=== PATIENT | female | born 1995 | race African-American/Black ===

== ENCOUNTER 2019-01-10 07:20 | Observation (INO) | payer MEDICAID ==
[~2019-01-10] VITALS: Ht 157.5 cm; Wt 68.9 kg
[2019-01-10] MEDS ORDERED: FERR325T6 MT (08:17)
[2019-01-10] MEDS ORDERED: PREN1TAB78 MT (08:17)
[2019-01-10] MEDS ORDERED: FISH MT (08:17)
== END 2019-01-10 08:30 | disposition home or self-care (01) ==
LOC: 8 EST LDRP 07:20
PROVIDERS: ADMIT Obstetrics & Gynecology; ATTEND Obstetrics & Gynecology
DX: O62.9 Abnormality of forces of labor, unspecified (principal); O46.93 Antepartum hemorrhage, unspecified, third trimester; Z3A.38 38 weeks gestation of pregnancy
CPT/HCPCS: 99281; G0378

== ENCOUNTER 2019-01-11 17:04 | Inpatient (IN) | payer MEDICAID ==
[~2019-01-11] VITALS: Ht 157.5 cm; Wt 68.0 kg
[~2019-01-11 17:04] MED LIST: FERR325T6 MT; FISH MT; PREN1TAB78 MT
[2019-01-11] MEDS ORDERED: CARBOPROST TROMETHAMINE 250 MCG/ML AMPUL IM PRN (19:45)
[2019-01-11] MEDS ORDERED: METHYLERGONOVINE MALEATE 0.2 MG/ML IM PRN (19:45)
[2019-01-11] MEDS ORDERED: NALOXONE HCL 0.4 MG/ML 1ML VIAL IM PRN (19:45)
[2019-01-11] MEDS ORDERED: BUTORPHANOL TARTRATE 2 MG/ML VIAL IV PRN (19:45)
[2019-01-11] MEDS ORDERED: AMPICILLIN 2,000 MG in SODIUM CHLORIDE 0.9% 100 ML IV SCH (20:00)
[2019-01-11] MEDS ORDERED: MISOPROSTOL 100MCG TABLET VG SCH (20:00)
[2019-01-11] MEDS ORDERED: LIDOCAINE HCL 1% 20ML VIAL (Pyxis) INJ INFIL SCH (20:10)
[2019-01-11] MEDS: LACTATED RINGERS 1,000 ML IV SCH ×3 (20:14→23:31)
[2019-01-11] MEDS ORDERED: DEXT 5%/LR + PITOCIN 20UNITS/L 1,000 ML IV SCH (20:15)
[2019-01-11 20:27] LABS: CLARITY URINE CLEAR (CLEAR); COLOR URINE YELLOW (YELLOW); KETONES URINE NEGATIVE (NEGATIVE); LEUKOCYTE ESTERASE URINE 1+ (NEGATIVE); NITRITE URINE NEGATIVE (NEGATIVE); OCCULT BLOOD URINE NEGATIVE (NEGATIVE); PH URINE 6.5 (4.5-8.0); PROTEIN URINE NEGATIVE (NEGATIVE); SPECIFIC GRAVITY URINE 1.006 (1.005-1.030); UROBILINOGEN URINE 0.2 E.U./dL (0.2-1.0)
[2019-01-11 20:27] LABS: BASOPHILS % 0.5 % (0.0-2.0); EOSINOPHILS % 0.1 % (0.0-5.0); HEMATOCRIT. 33.1 % (36.0-48.0); HEMOGLOBIN. 10.4 g/dL (12.0-16.0); LYMPHOCYTES % 10.8 % (20.0-50.0); MEAN CORPUSCULAR HEMOGLOBIN 22.8 pg (28.0-32.0); MEAN CORPUSCULAR VOLUME 72.8 fL (81.0-99.0); MEAN PLATELET VOLUME 8.8 fl (7.4-10.4); MONOCYTES % 10.1 % (2.0-8.0); NEUTROPHILS % 78.5 % (40.0-76.0); PLATELET 272 x1000/uL (130-400); RED BLOOD CELL COUNT 4.55 mill/uL (4.2-5.4); RED CELL DISTRIBUTION WIDTH 16.1 % (11.6-14.6)
[2019-01-11] MEDS ORDERED: ROPIVACAINE HCL/PF EPIDURAL 200 ML EPI SCH (20:30)
[2019-01-11 20:36] LABS: INR 0.9; PARTIAL THROMBOPLASTIN TIME 25.2 sec (23.4-31.0); PROTHROMBIN TIME 9.1 sec (9.6-11.0)
[2019-01-11 20:43] LABS: *AMPHETAMINES SCREEN URINE NEGATIVE (NEGATIVE); *BARBITURATES SCREEN URINE NEGATIVE (NEGATIVE); *BENZODIAZEPINES SCREEN URINE NEGATIVE (NEGATIVE); *COCAINE SCREEN URINE NEGATIVE (NEGATIVE); METHADONE URINE SCREEN NEGATIVE (NEGATIVE); OPIATES URINE SCREEN NEGATIVE (NEGATIVE)
[2019-01-11 20:44] LABS: CANNABINOID URINE SCREEN NEGATIVE (NEGATIVE); PHENCYCLIDINE URINE SCREEN NEGATIVE (NEGATIVE)
[2019-01-11 21:07] LABS: HEPATITIS B SURFACE ANTIGEN NEGATIVE
[2019-01-12] MEDS: AMPICILLIN 1,000 MG in SODIUM CHLORIDE 0.9% 50 ML IV SCH ×2 (02:08→07:35)
[2019-01-12] MEDS: LACTATED RINGERS 1,000 ML IV SCH (06:24)
[2019-01-12] MEDS ORDERED: FENTANYL CITRATE/PF 50MCG/ML 2ML VIAL ONE (06:28)
[2019-01-12] MEDS ORDERED: LIDOCAINE HCL 2%/EPINEPHRINE 1:100,000 20 ML VIAL INFIL ONE (10:00)
[2019-01-12] MEDS ORDERED: DEXT 5%/LR + PITOCIN 20UNITS/L 1,000 ML IV SCH (10:14)
[2019-01-12] MEDS ORDERED: GLYCERIN/WITCH HAZEL LEAF MEDICATED PAD TOP PRN (10:15)
[2019-01-12] MEDS ORDERED: BENZOCAINE/LANOLIN/ALOE VERA SPRAY TOP PRN (10:15)
[2019-01-12] MEDS ORDERED: ACETAMINOPHEN WITH CODEINE 300/30MG TABLET PO PRN ×2 (10:15)
[2019-01-12] MEDS ORDERED: BISACODYL 10MG SUPP PR PRN (10:15)
[2019-01-12] MEDS ORDERED: IBUPROFEN 400MG TABLET PO PRN (10:15)
[2019-01-12 12:15] VITALS: BP 118/67
[2019-01-12 13:15] VITALS: BP 111/61
[2019-01-12] MEDS: MAGNESIUM/ALUMINUM HYDROXIDE/SIMETHICONE 30ML UDC PO SCH ×3 (13:37→21:22)
[2019-01-12] MEDS: SIMETHICONE 80MG TABLET CHEW PO SCH ×3 (13:37→21:22)
[2019-01-12 16:15] VITALS: BP 131/72
[2019-01-12 21:15] VITALS: BP 133/74
[2019-01-13 05:00] VITALS: BP 113/67
[2019-01-13 06:30] LABS: BASOPHILS % 0.1 % (0.0-2.0); HEMATOCRIT. 26.8 % (36.0-48.0); HEMOGLOBIN. 8.3 g/dL (12.0-16.0); LYMPHOCYTES % 7.1 % (20.0-50.0); MEAN CORPUSCULAR HEMOGLOBIN 22.5 pg (28.0-32.0); MEAN CORPUSCULAR VOLUME 72.5 fL (81.0-99.0); MEAN PLATELET VOLUME 8.2 fl (7.4-10.4); MONOCYTES % 10.8 % (2.0-8.0); PLATELET 197 x1000/uL (130-400); RED CELL DISTRIBUTION WIDTH 16.4 % (11.6-14.6)
[2019-01-13] MEDS: PRENATAL VIT/FE FUMARATE/FA TABLET PO SCH (08:17)
[2019-01-13] MEDS: MAGNESIUM/ALUMINUM HYDROXIDE/SIMETHICONE 30ML UDC PO SCH ×3 (08:17→21:10)
[2019-01-13] MEDS: SIMETHICONE 80MG TABLET CHEW PO SCH ×3 (08:17→21:11)
[2019-01-13 09:03] VITALS: BP 109/76
[2019-01-13 16:00] VITALS: BP 107/71
[2019-01-13 19:45] VITALS: BP 121/74
[2019-01-13] MEDS ORDERED: IBUP-2030 MT (20:52)
[2019-01-14 05:00] VITALS: BP 115/63
[2019-01-14 08:00] VITALS: BP 115/60
[2019-01-14] MEDS: PRENATAL VIT/FE FUMARATE/FA TABLET PO SCH (09:25)
[2019-01-14] MEDS: SIMETHICONE 80MG TABLET CHEW PO SCH (09:26)
[2019-01-14] MEDS: MAGNESIUM/ALUMINUM HYDROXIDE/SIMETHICONE 30ML UDC PO SCH (09:26)
== END 2019-01-14 11:30 | disposition home or self-care (01) | DRG 560 ==
LOC: OBSVTOIN 17:04 → 8 EST LDRP 17:04 → 8EST 01-12 16:09
PROVIDERS: ADMIT Obstetrics & Gynecology; ATTEND Obstetrics & Gynecology
PROC: 10E0XZZ Delivery of Products of Conception, External Approach (ICD-10-PCS; principal; 2019-01-12)
PROC: 0KQM0ZZ Repair Perineum Muscle, Open Approach (ICD-10-PCS; 2019-01-12)
PROC: 0W8NXZZ Division of Female Perineum, External Approach (ICD-10-PCS; 2019-01-12)
DX: O69.81X0 Labor and delivery complicated by cord around neck, without compression, not applicable or unspecified (principal); D62 Acute posthemorrhagic anemia; O99.02 Anemia complicating childbirth; Z37.0 Single live birth; O70.1 Second degree perineal laceration during delivery; Z3A.39 39 weeks gestation of pregnancy
CPT/HCPCS: 36415; 80305; 81003; 86592; 86703; 86762; 86850; 86900; 87340; 99281; J0290; J0595; J2590; J2795; J3010; J3490; J7050

== ENCOUNTER 2021-07-22 14:20 | Emergency (ER) | payer MEDICAID ==
[~2021-07-22] VITALS: Ht 165.1 cm; Wt 66.0 kg
[~2021-07-22 14:20] MED LIST changes: +IBUP-2030 MT
[2021-07-22 14:27] VITALS: BP 115/64
[2021-07-22] MEDS ORDERED: KETOROLAC 15MG/ML VIAL IM ONE (15:15)
== END 2021-07-22 18:07 | disposition home or self-care (01) ==
LOC: ER 14:20
DX: M54.50 Low back pain, unspecified (principal); V43.52XA Car driver injured in collision with other type car in traffic accident, initial encounter; Y93.89 Activity, other specified; Y92.411 Interstate highway as the place of occurrence of the external cause
CPT/HCPCS: 72100; 81025; 96372; 99283; J1885